=== PATIENT | female | born 1940 | race Caucasian/White ===

== ENCOUNTER 2018-05-16 08:25 | Outpatient (CLI) | payer OTHER | END 2018-05-16 08:45 | disposition home or self-care (01) | LOC: TOM 08:25 | DX: K56.600 Partial intestinal obstruction, unspecified as to cause (principal) ==

== ENCOUNTER 2020-06-26 07:13 | Outpatient (CLI) | payer OTHER | END 2020-06-26 07:14 | disposition home or self-care (01) | LOC: NUCLEAR 07:13 | PROVIDERS: ATTEND Internal Medicine Cardiovascular Disease | DX: I25.6 Silent myocardial ischemia (principal); I50.1 Left ventricular failure, unspecified | CPT/HCPCS: 78452; 93017; A9500; J0153 ==